=== PATIENT | male | born 1970 | race African-American/Black ===

== ENCOUNTER 2016-10-28 19:47 | Inpatient (IN) | payer OTHER ==
[~2016-10-28] VITALS: Ht 182.9 cm; Wt 98.1 kg
[~2016-10-28 19:47] MED LIST: ASPIR 8181 MG PO; MULTIPLE VITAM1 EAC2 PO
--- NOTE | 2016-10-28 20:08 | NUR ---
PT BIBA WITH COMPLAINTS OF DEPRESSION. PT STATES HE STARTED HEARING VOICES 3 DAYS AGO THAT HAVE BEEN TELLING HIM TO KILL HIMSELF. PT STATES THAT HE HAS HAD THESE VOICES ABOUT 1.5 YEARS AGO AND WAS PRESCRIBED PROZAC. PT STATES HE STOPPED TAKING THE PROAC BECAUSE IT MADE HIS MOUTH DRY. PT ALSO RELAYS THAT 1.5 YEARS AGO HE TRIED TAKING PILLS TO KILL HIMSELF. PT STATES TODAY HE HEARD THE VOICES AND DECIDED TO WALK INTO TRAFFIC BUT BECAME TOO SCARED AND DID NOT PROCEED. BYSTANDERS CALLED PD AND PT WAS BROUGHT IN. PT STATES HE DOES NOT HAVE ANY EXTRA STRESS IN HIS LIFE, BUT 1.5 YEARS AGO HE LOST HIS HOUSE, CARS AND MOTHER. PT ALSO STATES THAT HE HAS NOT BEEN ABLE TO SPEAK WITH HIS SON. PT STATES THAT HE THINKS HE IS STILL TRYING TO COPE WITH THESE STRESSORS.
--- NOTE | 2016-10-28 20:34 | NUR ---
DR CAMPOS AT BEDSIDE FOR EVAL.
--- NOTE | 2016-10-28 20:44 | ED PSYCHIATRIC COMPLAINT ---
History of Present Illness General Chief Complaint: Psychiatric Related Complaint Stated Complaint: "BIBA PER EMS +SI WITH A PLAN" Source: patient Exam Limitations: intoxication Vital Signs & Intake/Output Vital Signs & Intake/Output Vital Signs Date Time Temp Pulse Resp B/P B/P Pulse O2 O2 Flow FiO2 Mean Ox Delivery Rate 10/29 1518 97.1 73 16 132/69 99 Room Air 10/29 1221 97.3 82 18 135/71 99 Room Air 10/29 0957 97.8 97 20 122/67 97 10/29 0631 97.0 73 18 128/69 99 Room Air 10/29 0224 97.3 80 20 127/69 99 Room Air 10/29 0041 97.5 83 20 129/75 98 10/28 2232 97.8 84 18 119/65 98 Room Air 10/28 2010 96.8 103 20 132/72 98 Room Air ED Intake and Output 10/29 0000 10/28 1200 Intake Total 0 Output Total Balance 0 Intake, Oral 0 Patient 185 lb Weight Triage Note: PT BIBA WITH COMPLAINTS OF DEPRESSION. PT STATES HE STARTED HEARING VOICES 3 DAYS AGO THAT HAVE BEEN TELLING HIM TO KILL HIMSELF. PT STATES THAT HE HAS HAD THESE VOICES ABOUT 1.5 YEARS AGO AND WAS PRESCRIBED PROZAC. PT STATES HE STOPPED TAKING THE PROAC BECAUSE IT MADE HIS MOUTH DRY. PT ALSO RELAYS THAT 1.5 YEARS AGO HE TRIED TAKING PILLS TO KILL HIMSELF. PT STATES TODAY HE HEARD THE VOICES AND DECIDED TO WALK INTO TRAFFIC BUT BECAME TOO SCARED AND DID NOT PROCEED. BYSTANDERS CALLED PD AND PT WAS BROUGHT IN. PT STATES HE DOES NOT HAVE ANY EXTRA STRESS IN HIS LIFE, BUT 1.5 YEARS AGO HE LOST HIS HOUSE, CARS AND MOTHER. PT ALSO STATES THAT HE HAS NOT BEEN ABLE TO SPEAK WITH HIS SON. PT STATES THAT HE THINKS HE IS STILL TRYING TO COPE WITH THESE STRESSORS. Triage Nurses Notes Reviewed? yes HPI: Patient presents for evaluation of suicidal ideation. He states that over the past week he began hearing voices commanding him to hurt himself. He states that he contemplated running into traffic. About a year ago he had taken an overdose of pills in a suicide attempt but denies hearing voices at that time. Voices of become more severe and insulting. He hasn't been taking any medications for this (he was on a prior antidepressant but discontinued this secondary to side effects). (MILENA VARGAS,CALVIN Joyner) Allergies Coded Allergies: No Known Allergies (10/29/16) (JOHAN VARGAS,MICHAEL Pearson) Reconcile Medications Elvitegr/Cobicist/Emtric/Tenof (Stribild Tablet) 150 MG-150 MG-200 MG-300 MG TABLET 1 TAB PO DAILY HIV (Reported) Multivitamin (Multiple Vitamins) 1 EACH TABLET 1 TAB PO DAILY SUPPLEMENT ( Reported) (LEATHA VARGAS,TIMOTHY) Past History Travel History Traveled to [place] past 21 day No Medical History Any Pertinent Medical History? see below for history Neurological: CVA Psychiatric: depression Blood Disorders: HIV Surgical History Surgical History: non-contributory Psychosocial History What is your primary language Eritrean Tobacco Use: Current Daily Use Daily Tobacco Use Amount/Type: => 5 Cigarettes daily ETOH Use: occasional use Illicit Drug Use: denies illicit drug use Family History Hx Contributory? No (MILENA VARGAS,CALVIN Joyner) Review of Systems Review of Systems Constitutional: Reports: no symptoms. EENTM: Reports: no symptoms. Respiratory: Reports: no symptoms. Cardiovascular: Reports: no symptoms. GI: Reports: no symptoms. Genitourinary: Reports: no symptoms. Musculoskeletal: Reports: no symptoms. Skin: Reports: no symptoms. Neurological/Psychological: Reports: see HPI. Hematologic/Endocrine: Reports: no symptoms. Immunologic/Allergic: Reports: no symptoms. All Other Systems: Reviewed and Negative (MILENA VARGAS,CALVIN Joyner) Physical Exam Physical Exam General Appearance: see below Neurological/Psychiatric: see below Comments: General: Alert, calm, cooperative Head: Normocephalic, atraumatic Eyes: Normal inspection, no nystagmus, decreased extraocular movements in the right eye secondary to prior trauma (basketball injury) Ears: Normal inspection Nose: Normal inspection Throat: Moist mucosa Neck: Supple, no goiter Heart: Regular rate and rhythm, no murmurs rubs or gallops Lungs: Clear to auscultation bilaterally with good air entry Abdomen: Soft nontender nondistended, normal bowel sounds Chest: Nontender Extremities: Normal range of motion grossly, no tremors present, no cyanosis clubbing or edema of the upper extremities Neurologic: cranial nerves II through XII grossly intact, speech clear, gait normal Psychiatric: No apparent delusions or hallucinations, no pressured speech or thought blocking SAD PERSONS Done? deferred to crisis (MILENA VARGAS,CALVIN Joyner) Progress Differential Diagnosis: drug intoxication, depression, anxiety, schizophrenia Plan of Care: Orders Procedure Date/time Status Regular Diet 10/29 B Active Admit to inpatient psych 10/30 1999 Active Continuous Observation Monitor 10/28 2125 Active URINE DRUG SCREEN FOR ER ONLY 10/28 2042 Complete ETHANOL 10/28 2042 Complete CBC WITHOUT DIFFERENTIAL 10/28 2042 Complete BASIC METABOLIC PANEL 10/28 2042 Complete ED CRISIS PSYCH CONSULT 10/28 2042 Active Current Medications Sig/Mark Start time Last Medication Dose Stop Time Status Admin Non-Formulary 0 SEE ADMIN CRITERIA 10/29 1699 UNVr Medication (NON FORMULARY) Laboratory Tests 10/28/162049: Serum Alcohol 74.0 10/28/162049: Anion Gap 13, Estimated GFR 54 L, BUN/Creatinine Ratio 12.9, Glucose 77, Calcium 9.0, CBC w Diff NO MAN DIFF REQ, RBC 4.99, MCV 72.8 L, MCH 23.7 L, RDW 18.4 H, MPV 8.3, Gran % 51.1, Lymphocytes % 33.6, Monocytes % 11.0 H, Eosinophils % 3.6, Basophils % 0.7, Absolute Granulocytes 3.1, Absolute Lymphocytes 2.0, Absolute Monocytes 0.7 H, Absolute Eosinophils 0.2, Absolute Basophils 0, PUBS MCHC 32.5 L, Urine Opiates Screen < 100.00, Methadone Screen < 40, Barbiturate Screen < 60, Ur Phencyclidine Scrn < 6.00, Amphetamines Screen < 100, U Benzodiazepines Scrn < 85, Urine Cocaine Screen < 50, Urine Cannabis Screen < 5.00 2:10 PM Patient signed out to me by Dr. La. Pending crisis disposition. (LEATHA VARGAS,TIMOTHY) Comments: 10/29/2016 7:17:19 AM patient signed out to Dr. La. (MILENA VARGAS,CALVIN Joyner) Hand-Off Endorsed To: TIMOTHY ZHANG MD Endorsed Time: 1400 Pending: consult (BED SEARCH) (JOHAN VARGAS,MICHAEL Pearson) Departure Departure Disposition: STILL A PATIENT Condition: Stable Referrals: UNKNOWN (PCP/Family) Departure Forms: Customer Survey General Discharge Information (CALVIN ABBOTT MD) Departure Time of Disposition: 2000 Clinical Impression Primary Impression: Psychosis Psych Admission Note Psychiatric Admission: I have seen and evaluated MARGE BERRY. I have also reviewed all the pertinent lab results and diagnostic results. MARGE BERRY will be admitted to our inpatient Psychiatric unit for treatment and care. (LEATHA VARGAS,TIMOTHY)
--- NOTE | 2016-10-28 20:56 | NUR ---
URINE TRIO AND LABS SENT (BLUE,SST,LAV,CORONEL)
[2016-10-28 21:08] LABS: ABSOLUTE BASOPHIL COUNT 0 /CUMM (0.0-0.2); ABSOLUTE EOSINOPHIL COUNT 0.2 /CUMM (0.0-0.7); ABSOLUTE GRANULOCYTE CT 3.1 /CUMM (1.4-6.5); ABSOLUTE MONOCYTE COUNT 0.7 /CUMM (0.10-0.60); BASOPHIL % 0.7 % (0.0-2.0); EOSINOPHIL % 3.6 % (0-5); GRANULOCYTE % 51.1 % (42.2-75.2); HEMATOCRIT 36.4 % (42-52); MEAN CORPUSCULAR HGB 23.7 PG (27.0-31.0); MEAN CORPUSCULAR HGB CONC 32.5 G/DL (33.0-37.0); MEAN CORPUSCULAR VOLUME 72.8 FL (80.0-94.0); MEAN PLATELET VOLUME 8.3 FL (7.4-10.4); PLATELET COUNT 260 /CUMM (130-400); RBC DISTRIBUTION WIDTH 18.4 % (11.5-14.5); RED BLOOD CELL CT 4.99 /CUMM (4.70-6.10)
--- NOTE | 2016-10-28 22:40 | NUR ---
PT RESTING QUIELTY ON STRETCHER. NORMAL RR NOTED. SITTER IN PLACE. WILL CONTINUE TO MONITOR.
--- NOTE | 2016-10-28 22:55 | NUR ---
ASSUMED CARE OF PT, PT RESTING IN RM WITH RR, WILL CONTINUE TO MONITOR. SITTER IN PLACE
--- NOTE | 2016-10-29 00:30 | NUR ---
PT SLEEPIGN IN RM WITH BILATERAL CHEST RISE AND FALL NOTED. SITTER IN PLACE AT DOOR
--- NOTE | 2016-10-29 02:20 | NUR ---
PT SLEEPING WITH RR. SITTER IN PLACE IN DOOR WAY. WILL CONTINUE TO MONITOR
--- NOTE | 2016-10-29 05:32 | NUR ---
PT SLEEPING WITH RR AND SNORING, WILL CONTINUE TO MONITOR. SITTER IN PLACE
--- NOTE | 2016-10-29 07:37 | NUR ---
PT SLEEPING, NORMAL RESP RATE NOTED. SITTER AT BEDSIDE FOR PT SAFETY.
--- NOTE | 2016-10-29 10:43 | ED PSYCH CRISIS CONSULTATION ---
Crisis Consult Basic Assessment Date of Consult: 10/29/16 Responsible Person/Accompanied By: NEGRITO Insurance Authorization: Insurance #1: Insurance name: MEDICARE A Phone number: Policy number: [id number] Group number: Authorization number: ED Provider: Patient's ED Provider: CALVIN ABBOTT MD Primary Care Physician: Patient's PCP: UNKNOWN PCP's Phone Number: Current Psychiatrist: None Chief Complaint: Psychiatric Related Complaint Patient's Quote: "Im having suicidal thoughts, and feellike I failed at life" Present Illness: Pt is a 46 year old male, states yesterday he began to hear voices telling him to "put yourself in front of a moving vehicle', pt did it, and a bystander called 911 and he brought in by ambulance. Pt is calm, cooperative. He states he recently became homeless and is upsetting, that he has suffered so much loss int he past 2 years. "if I loved it I lost it", pt refers to his Mother, his and children and his apartment and job. Pt states he also found out 6 months ago he was HIV +. Pt reports he is overwhelmed, depressed, and has been drinking daily usually vodka and/or a few beers. He has no history of having psychiatric treatment, 4 years ago he detoxed at [facility]. Pt denies drug use and his tox screen is negative. Pt reports he tried to hurt himself 2 years ago by taking pills, he is currently suicidal, "I feel like I failed at life", he is hopeless and reports he is hearing command hallucinations telling him to hurt himself. Pt is only on medication for HIV + and is not on any psychiatric medications. Pt understands plan will be for admission. Patient's Address: [address] [place] [id number] Other Phone Number: Family/Informants Interviewed: Spoke with Brad alvarez brother, he states his brother lost his apartment and he has been having a lot of stress since becoming homeless. Please keep him informed once we know where he is going to be hospitialized Allergies - Coded Allergies: No Known Allergies (10/29/16) Current Medications - Scheduled Medications Aspirin (Ecotrin) 81 MG TABLET. 1 TAB PO DAILY BLOOD THINNER (Reported) Entered as Reported by FRANCISCA COHEN on 05/29/142035 Multivitamin (Multiple Vitamins) 1 EACH TABLET 1 TAB PO DAILY SUPPLEMENT ( Reported) Entered as Reported by FRANCISCA COHEN on 05/29/142036 Laboratory Results: Laboratory Tests 10/28/162049: Serum Alcohol 74.0 10/28/162049: Anion Gap 13, Estimated GFR 54 L, BUN/Creatinine Ratio 12.9, Glucose 77, Calcium 9.0, CBC w Diff NO MAN DIFF REQ, RBC 4.99, MCV 72.8 L, MCH 23.7 L, RDW 18.4 H, MPV 8.3, Gran % 51.1, Lymphocytes % 33.6, Monocytes % 11.0 H, Eosinophils % 3.6, Basophils % 0.7, Absolute Granulocytes 3.1, Absolute Lymphocytes 2.0, Absolute Monocytes 0.7 H, Absolute Eosinophils 0.2, Absolute Basophils 0, PUBS MCHC 32.5 L, Urine Opiates Screen < 100.00, Methadone Screen < 40, Barbiturate Screen < 60, Ur Phencyclidine Scrn < 6.00, Amphetamines Screen < 100, U Benzodiazepines Scrn < 85, Urine Cocaine Screen < 50, Urine Cannabis Screen < 5.00 Past History Past Medical History Neurological: CVA Psychiatric: depression Blood Disorders: HIV Past Surgical History Surgical History: non-contributory Psychosocial History Strengths/Capabilities: Wants treatment, has had a hx of stabilzation Psychiatric Treatment History Psych Treatment Psychiatric Treatment No Diagnosis by History: none known Substance Use/Abuse History Drug Use/Abuse Substances Used/Abused Yes Substance Used/Abused Alcohol First Use teenage Last Used yesterday How much used/taken varies sometimes vodka sometimes a few beers How often daily For how long on and off for years Route of use oral Substance Abuse Treatment Substance Abuse Treatment Past Substance Abuse TX Yes Inpatient Treatment Yes Outpatient Treatment No Location of Treatment [facility] Reason for Treatment etoh detox Dates of Treatment 4 years ago Response to Treatment unknown Current Mental Status Mental Status Orientation: Person, Place, Situation Affect: Variable Speech: WNL Neuro-vegetative: Concentration Poor, Energy Decreased, Helpless, Sleep Disturbance Appearance Appearance- Dress/Hygiene: Tattoos, groomed. Behaviors Thought Process: Tangential Thought Content: Auditory Hallucinations Memory: WNL Insight: Poor SI/HI Risk Assessment Past Suicidal Ideation/Attempts Yes Current Suicidal Ideation/Att Yes Past Homicidal Ideation/Att: No Current Homicidal Ideation/Attempts No Degree of Intent: Made Preparations Danger To: Self Gravely Disabled: Poor Impulse Control Risk Factors: chronic/serious med cond., history of suicide atmpts, substance abuse, poor impulse control, male, limited support Lethality Ratin PTSD Checklist PTSD Done? patient declined ED Management Sitter: Yes Restraints: No DSM5/PS Stressors/Medical Prob Diagnosis' (DSM 5, Stressors, Medical): Bipolar with psychosis F31.2 Current GAF: 25 Departure Disposition Psych Medical Clearance Date: 10/29/16 Medically Cleared at: 0930 Time Started: 09 Time Ended: 103 Psychiatrist Consulted: Dr. Rosen Date Disposition Established: 10/29/16 Time Disposition Established: 1035 Plan for Disposition - Modality: Bed Search Rationale for Disposition: Consulted with Dr. Rosen pt needs an inpatient hospital bed Referrals UNKNOWN (PCP/Family)
--- NOTE | 2016-10-29 14:09 | NUR ---
PT CONTINUES TO REST QUIETLY AND COMFORTABLY IN BED AWARE HE IS A BED SEARCH AT THIS TIME REMAINS WITHOUT COMPLAINTS SITTER PRESENT
--- NOTE | 2016-10-29 15:05 | NUR ---
ASSUMED CARE OF THIS PT AT THIS TIME. VSS. PT ASKING ABOUT HIS ONCE DAILY HIV MED CALLED "[facility]". WILL CHECK HOME MED LIST. SITTER AT DOOR FOR SAFETY.
[2016-10-29] MEDS ORDERED: STRIBILD TABLE1 EACH PO (15:26)
--- NOTE | 2016-10-29 19:15 | NUR ---
ASSUMED CARE OF PT PER RN KELLY. PT RESTING IN RM WITH RR, AWAITING A FOOD TRAY THIS RN WILL CHECK. WILL CONTINUE TO MONITOR. SITTER IN PLACE IN AT DOOR
--- NOTE | 2016-10-29 19:49 | IP CRISIS DIAG ASSESS PSYCH ---
Diagnostic Assessment Basic Assessment Insurance Authorization: Insurance #1: Insurance name: MEDICARE A Phone number: Policy number: [id number] Group number: Authorization number: There is an existing authorization for the same service that overlaps with the requested start date. You cannot proceed with this request. Need to call [facility] tomorrow during business hours to get authorization. TEMP ID - [id number] Primary Care Physician: Patient's PCP: UNKNOWN PCP's Phone Number: Patient's Quote: "Im having suicidal thoughts, and feellike I failed at life" Present Illness: Pt is a 46 year old male, states yesterday he began to hear voices telling him to "put yourself in front of a moving vehicle', pt did it, and a bystander called 911 and he brought in by ambulance. Pt is calm, cooperative. He states he recently became homeless and is upsetting, that he has suffered so much loss int he past 2 years. "if I loved it I lost it", pt refers to his Mother, his and children and his apartment and job. Pt states he also found out 6 months ago he was HIV +. Pt reports he is overwhelmed, depressed, and has been drinking daily usually vodka and/or a few beers. He has no history of having psychiatric treatment, 4 years ago he detoxed at [facility]. Pt denies drug use and his tox screen is negative. Pt reports he tried to hurt himself 2 years ago by taking pills, he is currently suicidal, "I feel like I failed at life", he is hopeless and reports he is hearing command hallucinations telling him to hurt himself. Pt is only on medication for HIV + and is not on any psychiatric medications. Pt understands plan will be for admission. Patient's Address: [address] [place] [id number] Other Phone Number: Who Do You Live With? Patient/Self Feel Safe Where You Live? Yes Feel Safe in Your Relationship Yes Marital Status: Do You Have Children? Yes Ages? 20,17 Primary Language? Yi Language(s) Spoken At Home: Yi Family/Informants Interviewed: Spoke with Brad alvarez brother, he states his brother lost his apartment and he has been having a lot of stress since becoming homeless. Please keep him informed once we know where he is going to be hospitialized Allergies - Coded Allergies: No Known Allergies (10/29/16) Current Medications - Scheduled Medications Elvitegr/Cobicist/Emtric/Tenof (Stribild Tablet) 150 MG-150 MG-200 MG-300 MG TABLET 1 TAB PO DAILY HIV (Reported) Entered as Reported by KEKE HARDING on 10/29/16 152 Multivitamin (Multiple Vitamins) 1 EACH TABLET 1 TAB PO DAILY SUPPLEMENT ( Reported) Entered as Reported by FRANCISCA COHEN on 05/29/142036 Consequences of Psych Med Use: not prescribed psychotropics Lab Results: Laboratory Tests 10/28/162049: Serum Alcohol 74.0 10/28/162049: Anion Gap 13, Estimated GFR 54 L, BUN/Creatinine Ratio 12.9, Glucose 77, Calcium 9.0, CBC w Diff NO MAN DIFF REQ, RBC 4.99, MCV 72.8 L, MCH 23.7 L, RDW 18.4 H, MPV 8.3, Gran % 51.1, Lymphocytes % 33.6, Monocytes % 11.0 H, Eosinophils % 3.6, Basophils % 0.7, Absolute Granulocytes 3.1, Absolute Lymphocytes 2.0, Absolute Monocytes 0.7 H, Absolute Eosinophils 0.2, Absolute Basophils 0, PUBS MCHC 32.5 L, Urine Opiates Screen < 100.00, Methadone Screen < 40, Barbiturate Screen < 60, Ur Phencyclidine Scrn < 6.00, Amphetamines Screen < 100, U Benzodiazepines Scrn < 85, Urine Cocaine Screen < 50, Urine Cannabis Screen < 5.00 Toxicology Screen Completed? Yes Results: positive (ETOH) Symptoms of Use: daily alcohol use. He reports past hx of cocaine abuse Past History Past Medical History Medical History: Stroke, BLIND LEFT EYE Past Surgical History Surgical History LEFT KNEE SURGERY Abuse/Trauma History Trauma History/Current Trauma: Denies Psychosocial History Strengths/Capabilities: Wants treatment, has had a hx of stabilzation Psychiatric Treatment History Psych Treatment Psychiatric Treatment Yes Inpatient Treatment Yes Outpatient Treatment No Location of Treatment [facility] - 10/23/16 stayed 1 day then discharged Reason for Treatment "chest pain" Diagnosis by History: none known Risk Factors: chronic/serious med cond., history of suicide atmpts, substance abuse, poor impulse control, male, limited support Substance Use/Abuse History Drug Use/Abuse minimum 12mo Hx Substances Used/Abused Yes Substance Used/Abused Alcohol First Use teenage Last Used yesterday How much used/taken varies sometimes vodka sometimes a fewbeers How often daily For how long on and off for years Route of use oral Substance Abuse Treatment Substance Abuse Treatment Past Substance Abuse TX Yes Inpatient Treatment Yes Outpatient Treatment No Location of Treatment [facility] Reason for Treatment etoh detox Dates of Treatment 4 years ago Response to Treatment unknown Comments: pt also reports a prior hx of cocaine abuse Education History Highest Level of Education: high school/GED Preferred Learning Style: visual, experiential Current Mental Status Mental Status Orientation: Person, Place, Situation Affect: Variable Speech: WNL Neuro-vegetative: Concentration Poor, Energy Decreased, Helpless, Sleep Disturbance Appearance Appearance- Dress/Hygiene: Tattoos, groomed. Behaviors Thought Process: Tangential Thought Content: Auditory Hallucinations Memory: WNL Insight: Poor SI/HI Risk Assessment - Minimum 6mo History- Past Suicidal Ideation/Attempts Yes Current Suicidal Ideation/Att Yes Past Homicidal Ideation/Att: No Current Homicidal Ideation/Attempts No Degree of Intent: Made Preparations Danger To: Self Gravely Disabled: Poor Impulse Control Risk Factors: chronic/serious med cond., history of suicide atmpts, substance abuse, poor impulse control, male, limited support Lethality Ratin Needs/Init TX Plan/Goals: psychiatric evaluation medication assessment individual, family and group tx coordinated discharge planning AUDIT-C Questionnaire: AUDIT-C Questionnaire: Response Value ETOH use in the past year 4 or more per week 4 # drinks typical/day 7-9 3 6 or > drinks per occasion Daily/Almost Daily 4 Total 11 DSM5/PS Stressors/Medical Prob Diagnosis' (DSM 5, Stressors, Medical): Bipolar with psychosis F31.2 Current GAF: 25 Comments: pt vague about admission to [place] on 10/23/16 and why he was discharged after 1 night.
--- NOTE | 2016-10-29 20:08 | NUR ---
THIS RN GAVE REPORT TO CPS RN. SECURITY CALLED FOR TRANSPORT. PTS BELONGINGS WILL GO DOWN WITH PT.
--- NOTE | 2016-10-29 21:42 | NUR ---
Patient admitted from ED. Patient is calm and cooperative. Patient is able to communicate in a clear and coherent manner. Patient reports commnad hallucinations that are currently "quiet". Patient reports he has abused cocaine within the past 6 months. Patient lists the primary trigger for use is ETOH. Patient reports drinks alcohol, but not constantly. Patient recent stressors include ex- preventing him from seeing 2 grown sons, 20 and 17, respectively. Patient is very friendly and looking forward to help. Patient verbalized understanding of unit rules and declined any further information about advanced directives. Looking forward to helping Fabricio with mental health.
[2016-10-29 21:46] VITALS: BP 140/73
--- NOTE | 2016-10-30 06:57 | NUR ---
PATIENT WAS UP TO BATHROOM ONCE, OTHERWISE SLEPT ALL NIGHT.
[2016-10-30 07:45] VITALS: BP 122/70
--- NOTE | 2016-10-30 11:41 | NUR ---
PT HAS BEEN CALM AND COOPERATIVE THIS SHIFT. HE IS ATTENDING GROUPS AND VERBALIZING HIS FEELINGS AND CONCERNS APPROPRIATELY. PT DENIES SUICIDAL THOUGHTS AT THIS TIME AND HE DENIES AH. HE STATED HE WAS PLEASED THAT HE CAME TO THE HOSPITAL FOR HELP.
--- NOTE | 2016-10-30 11:52 | NUR ---
CONSULT CALLED WITH DR KING REGARDING PTS ANTIVIRAL MEDICATION. DR KING HAS ASKED PHARMACY TO OBTAIN PTS SPECIFIC MED AND WILL NOT NEED TO SEE PT AT THIS TIME. HE STATED TO CALL IF WE FELT PT NEEDED TO BE SEEN
[2016-10-30 12:34] VITALS: BP 135/81
--- NOTE | 2016-10-30 13:30 | SOCIAL WORKER PROG NOTE PSYCH ---
Social Work Progress Note Progress Note Pt authorized from 10/29/16 to 11/04/16 U [id number] Pt was just inpatient at [facility] 10/23/16 to 10/27/16 per [facility], he was expected to follow up with [facility]. He was prescribed Remeron 15mg and Zyprexa 5mg
--- NOTE | 2016-10-30 13:31 | SOCIAL WORKER SOCIAL HX PSYCH ---
Social History Basic Assessment Insurance Authorization: Insurance #1: Insurance name: MEDICARE A Phone number: Policy number: [id number] Group number: Authorization number: Curr Source of Income/Entitlements: [employer] [facility] Primary Care Physician: Patient's PCP: UNKNOWN PCP's Phone Number: Primary Language? Kosovan Language(s) Spoken At Home: Kosovan Living Situation Other Living Arrangement: homeless living w/friend Feel Safe Where You Are Living No Feel Safe in Relationships? Yes Comments: pt does not feel safe being homeless Allergies - Coded Allergies: No Known Allergies (10/29/16) Current Medications - Scheduled Medications Elvitegr/Cobicist/Emtric/Tenof (Stribild Tablet) 150 MG-150 MG-200 MG-300 MG TABLET 1 TAB PO DAILY HIV (Reported) Entered as Reported by KEKE HARDING on 10/29/16 1526 Multivitamin (Multiple Vitamins) 1 EACH TABLET 1 TAB PO DAILY SUPPLEMENT ( Reported) Entered as Reported by FRANCISCA COHEN on 05/29/142036 Past History Past Medical History Neurological: CVA Psychiatric: depression Blood Disorders: HIV Past Surgical History Surgical History: non-contributory /Family History Place/Country of Origin: [place], [place] Childhood Family Constellation: Mother and Father never lived together, but he was there. Grew up with 6 brothers and 1 sister. Primary Childhood Caretakers: mother Family Life During Childhood: "Great" DCF Involvement? No Mother's Age (Current/): 66 ( 2 years ago) Relationship w/Mother: she was my best friend, she 2 years ago and I'm not over it yet Father's Age (Current/): 68 Relationship w/Father: it was ok, he also 2 years ago Any Sibling(s)? Yes Sibling's Gender(s)/Age(s): male Sibling 1:, male Sibling 2:, male Sibling 3:, male Sibling 4:, male Sibling 5:, male Sibling 6:, female Sibling 7: Relationship w/Sibling(s): we talk everyday, we are all very close. Im one of 8 Relationship w/Friends: I have a few 'righteous" friends Family Psych/Sub Abuse/Add Hx: drug of choice Other Comments: Some uncles had ad rinking problem, and maybe some family memebers had some psych issues but no one was diagnosed Abuse/Trauma History Trauma History/Current Trauma: Denies Legal History Current Legal Status: none Pending Court Dates: denies Have you ever been arrested Yes Number of Arrests: 1 Hx of Juvenile Legal Charges? No Hx of Adult Legal Charges? No Civil Proceedings: denies Domestic Relations Court: denies Child Protective Serv Involvmnt denies Community Relations Liaison denies Psychosocial History Primary Support System: significant other, sibling(s) Strengths/Capabilities: Wants treatment, has had a hx of stabilzation Weaknesses: homelessness, "not getting out of this funk" Last Physical: unknown History of Seizures? No (had a stroke) History of Blackouts? No ADL Limitations: had a stroke and body reacts differently now, and pt reports he cant run now [place]/Social/Peer Relations few friends Meaningful Activities: "Im a boring rafael", dinner and a movie and my family are all i need to make me content Childhood Episcopalian: Religion Current Muslim Affiliation: Religion Is Spirituality Important to You? yes Patient's Ethnicity: Cultural/Ethnic Issues: none Are There Developmental Issues? No Milestones Achieved: fine motor, gross motor Psychiatric Treatment History Psych Treatment Inpatient Treatment Yes Outpatient Treatment No Location of Treatment [facility] 10/23/16 stayed 1 daythen discharged Reason for Treatment "chest pain" Diagnosis: none known Psychodynamic Issues: grief, homelessness, not seeing his children in 2 years Risk Factors: chronic/serious med cond., history of suicide atmpts, substance abuse, poor impulse control, male, limited support Substance Use/Abuse History Drug Use/Abuse Substance Used/Abused Alcohol First Use teenage Last Used yesterday How much used/taken varies sometimes vodka sometimes a fewbeers How often daily For how long on and off for years Route of use oral Have Had Periods of Sobriety? No Relapse History? Yes Have You Ever Attended AA? No Do You Attend AA Currently? No Do You Have a Sponsor? No Symptoms of Use: daily alcohol use. He reports past hx of cocaine abuse Substance Abuse Treatment Substance Abuse Treatment Inpatient Treatment Yes Outpatient Treatment No Location of Treatment [facility] Reason for Treatment etoh detox Dates of Treatment 4 years ago Response to Treatment unknown Sexual History Sexually Active Yes # of partners 1 Sexual Orientation Heterosexual Use of Protection No Sexual Concerns: none noted Education History Highest Level of Education: high school/GED Highest Grade Completed: ged Number of College Years: 0 College Degree/Major: n/a Preferred Learning Style: visual, experiential HX of Learning Difficulties: dyslexia Barriers to Learning: None reported Special Communication Needs: None reported Employment History Employment Unemployed No. of Jobs in Last 5 Years: 2 History Have You Been in The ? No Current Mental Status Mental Status Orientation: Person, Place, Situation Affect: Variable Speech: WNL Neuro-vegetative: Concentration Poor, Energy Decreased, Helpless, Sleep Disturbance Appearance Appearance- Dress/Hygiene: Tattoos, groomed. Behaviors Thought Process: Tangential Thought Content: Auditory Hallucinations Memory: WNL Insight: Poor SI/HI Risk Assessment Past Suicidal Ideation/Attempts Yes Current Suicidal Ideation/Att Yes Past Homicidal Ideation/Att: No Current Homicidal Ideation/Attempts No Degree of Intent: Made Preparations Danger To: Self Gravely Disabled: Poor Impulse Control Lethality Ratin - Conclusion and Recommendations for treatment - and discharge planning
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
--- NOTE | 2016-10-30 13:50 | NUR ---
PT VISIBLE IN THE [employer] THROUGHOUT THE DAY. HIS GOAL WAS TO HAVE AN OPEN MIND, PAY ATTENTION TO SELF. PT HAS BEEN GOING TO GROUPS, AND INTERACTS WITH SOME OF HIS PEERS. IN THE [place]IE[place] PT HAS BEEN COMPLIANT WITH STAFF DIRECTION, AND DENIES THOUGHTS OF HURTING SELF WHEN ASKED.
--- NOTE | 2016-10-30 15:26 | SOCIAL WORKER PROG NOTE PSYCH ---
Social Work Progress Note Progress Note Pt was calm and cooperative forthcoming with information. Pt states he can't seem to get "out of his funk", he is upset about the past 2 years regarding loss his mother, , children, job and cars but pt does not seem to have insight to what he can do to improve his mood, or his current situation. Pt states he has supportive siblings and his girlfriend is supportive.
--- NOTE | 2016-10-30 15:48 | RADIOLOGY REPORT ---
EXAMINATION: XR HAND, RIGHT CLINICAL INFORMATION: Pain COMPARISON: None TECHNIQUE: AP, lateral, and oblique views of the right hand. FINDINGS: The bones and soft tissues are normal. No fracture. Alignment is anatomic. Joint spaces are maintained. No erosions or soft tissue calcifications. IMPRESSION: Normal right hand.
[2016-10-30 16:17] VITALS: BP 143/77
--- NOTE | 2016-10-30 16:38 | CPS MD/APRN INITIAL ASSE PSYCH ---
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 Chief Complaint: "I'm having suicidal thoughts and feel like I failed at life." ("two years ago I had a , kids, a job and a home [in [place]]...if I loved it, I lost it...") Reaction to Hospitalization: hoping for relief of unremitting depression History of Present Illness Onset of Illness: Things have gone further downhill than they were already since patient has lost his job and apartment and become essentially homeless. He went to [facility] for help on 10/23/2016 but was held for just one day and discharged (?from the E.R.) He was brought in by ambulance complaining of voices "for 3 days" and that they told him to "walk into traffic," bystanders became concerned, called 911 and he was brought to hospital. In the E.D., patient eventually became concerned that he needed his HIV medication, Stribild (evidencing some regard for his own health and welfare). Circumstances Leading to Admission: (see above, under Onset of Illness) beginning to walk into traffic at command of "voices" Problem(s) Justifying Need for Admission: (see above, under Onset of Illness) experiencing command auditory hallucinations to walk into traffic Other HPI: Patient said he had started to abuse crack cocaine while living with his family in [place]; this finally eventuated about 2 years ago into his losing job, home, and children; his mother with whom he had been close 2 years ago. Since then he has become increasingly depressed but had started to do somewhat better here in [place], had a job and acquired his own apartment but was laid off and lost his new place, becoming homeless again. Past Psychiatric History Past Diagnosis(es)- if any: no previous treatment known at this time other than recently being given Prozac which he stopped taking due to dry mouth Past Precipitating Factors- if any: (as above) - Include inpatient and outpatient treatment Treatment History: detoxed at [facility] 4 years ago; said to have been inpatient at [facility], [facility], 10/23-10/27/2016, treated with Zyprexa, 5mg and Remeron, 15mg, referred to [facility]. History of Suicide Attempts or Gestures none known prior to incident in traffic CREW MANAGER Substance Abuse History: patient said to have been detoxed at [facility] "4 years ago" (?for what), has used alcohol ("on and off for years") and cocaine primarily; into cocaine years ago and suffered a stroke related to this in 2001 (but said to not have stopped using cocaine until 2004; he was recently drinking "vodka and a few beers" apparently daily (TYRONE in E.D. CREW MANAGER was 74.0), but urine tox. screen completely negative upon current E.D. presentation and also previously here in 05/2014. 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: HIV Other Medical Hx: has known about being HIV(+) possibly for years; currently receives treatment in [facility] where he is prescribed Stribild Isolation History: Standard Surgical History Surgical History: LEFT KNEE SURGERY Psychiatric Family/Social Hx Family History Psychiatric Illness: no history of known treatment ("but some may have had 'problems'") Substance Use: some uncles with alcohol problems Suicides: none known Other Family History: says he has 6 brothers and `1 sister "all doing well" Social History Living Situation: (see above, under Identifying Information) homeless Significant Relationships (family/friends): --has a current girlfriend who is supportive and with whom he stays on occasion --has 6 brothers and 1 sister Education: high school Vocation/Occupation: unemployed (?on SSDI) Legal: "arrested once" Other Social History: has 7 siblings who he claimed are "all doing well"; has 17 and 20-year-old children in [place] [facility] Behaviors Screening Tobacco Screening Tobacco Use from ED Docu: Current Daily Use Daily Tobacco Use Amount/Type: => 5 Cigarettes daily - If tobacco counseling indicated - the following topics are required. - #1 Recognizing dangerous situations. - #2 Coping Skills. - #3 Basic information about quitting. Status of Tobacco Cessation Counseling: #1, #2 AND #3 Completed Cessation Med Status: Nicotine Gum Ordered Alcohol Screening - ETOH screen POS if BAL >=80 or Audit-C>= M4/F3 Audit-C Score from Diag Assess: 11 Blood Alcohol Level: TYRONE = 74.0 Alcohol Use Screening Results: Pos per Audit C &/or BAL - If ETOH counseling indicated - the following topics are required. - #1 Express concern about the patient's - drinking at unhealthy levels, include informing - of national norms for moderate drinking: - men <= 14 drinks/week, max 4 drinks/occasion - women <= 7 drinks/week, max 3 drinks/occasion - #2 Providing feedback, including linking alcohol to - negative physical effects (liver injury, hypertension) - negative emotional effects (relationship problems and - depression) - negative occupational consequences (reduced work - performance) - #3 Advising the patient to abstain from alcohol or - to drink below national norms for moderate drinking - (as listed above). Status of ETOH Use Counseling: #1, #2 AND #3 Completed. Metabolic Screening - Screen if on a Neuroleptic Medication - Metabolic screening should include: - Blood Pressure, BMI, Glucose or Hgb A1c, & a - Lipid profile from within the past 365 days. Metabolic Screening ([x]) Not Applicable, patient not on a neuroleptic. OR () Patient on a neuroleptic(s) . Enter below results for Glucose or Hemoglobin A1C, and lipid panel if obtained during the last 365 days. BMI: 25.100 Blood Pressure: 135/75 Laboratory Results (If applicable): Exam and Plan Mental Status Examination Ambulation Status: without assistance Appearance: very tired/exhausted (at least partially due to lack of/poor sleeep) Attitude towards examiner: positive if slightly cautious Psychomotor activity: normal Behavior: appropriate, pleasant, polite Quality of speech: soft and somewhat poorly articulated at times (?related to exhaustion/lack of sleep) Affect: constricted, tense Mood: depressed, close to despondent Suicidal Ideation: acknowledges hearing voices CREW MANAGER telling him to walk into traffic but denies current suicidality and able/willing to give a safety promise for on [place] Homicidal Ideation: denied Hallucinations: experienced command auditory hallucinations recently CREW MANAGER but denied any at time of interview Paranoid/Delusional Material: possibly slightly guarded but generally forthcoming; no evidence of delusional ideation Difficulties with thought organization: mildly (?due to lack of sleep) Insight: limited but capable of enhancing with treatment Judgment: fair to good (though had a struggle with instructions of "voices" CREW MANAGER; started to walk into traffic on command but then "got scared") Orientation: full Cognition: grossly intact Memory Function: some impairment with regard to time frame and sequencing and apparently some variation in his account of events (different information on various assesments (in E.D., on H&P, etc.) Estimate of intellectual functioning: average Assets/Strengths Patient Identified Assets/Strengths: --loves his children --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 Initially, we will treat with SSRI anti-depressant and low dose neuroleptic with close monitoring for auditory hallucinations or other psychotic symptomatology. Sleep disturbance/disruption must be addressed. Referral to IOP would be a good idea once patient has a place of residence. We should have a family meeting with girlfriend and/or closest siblings ANTONIO. - Include all active medical diagnosis that require tx DSM 5 Diagnosis(es): Unspecified Depression, possibly recurrent, severe, with psychotic features ( auditory hallucinations) R/O Major Depressive Episode/Disorder R/O Schizoaffective Disorder, Depressed Alcohol Use Disorder, atleast mild to moderate (hx of at least one inpatient detox) Cocaine Use Disorder, possibly in remission but extensive history of abuse and sequelae (CVA) - Initial Tx Plan for Active Psych & Medical Conditions Treatment Plan: --will initiate treatment with low dose primary (SSRI) anti-depressant (Zoloft since experienced dry mouth with Prozac) --will initiate treatment with low dose neuroleptic (either restart Zyprexa or give Abilify to augment anti-depressant efficacy) --will attempt to improve sleep with trazodone, melatonin, low dose Ativan --will monitor for alcohol withdrawal (not likely to be major given low TYRONE in E.D. but hx of inpatient detox at [facility] 4 years ago) --will organize a couple's and/or family meeting --will consider referral to sober residence --will refer to our on dual focus IOP if will be living in local area (most recently resided in [place]) --will encourage involvement in A.A./sponsorship - Factors that would help patient function - in a less restrictive setting. Factors: --rapid and significant improvement in sleep --prompt resolution of homelessness as an issue --significant involvement/support of girlfriend and/or relatives, especially any of 7 siblings
[2016-10-30 19:50] VITALS: BP 129/93
--- NOTE | 2016-10-30 21:13 | NUR ---
PT IS CALM, COOPERATIVE WITH STAFF AND PEERS, AND COMPLIANT WITH UNIT RULES. PT IS OFTEN IN [place], INYERACTING WELL WITH OTHERS. MOOD IS STABLE, AFFECT APPEAR EUTHYMIC TO FULL RNAGE, AND APPETITE IS NORMAL. PT DENIES SI AT THIS TIME.
--- NOTE | 2016-10-31 05:14 | NUR ---
SLEPT WELL, ALTHOUGH PT STATES HE SLEPT ONLY A HALF HOUR ALL NIGHT. WOKE UP WITH A VERY DRY MOUTH AND HE THINKS IT'S FROM TAKING TRAZODONE.
[2016-10-31 07:55] VITALS: BP 143/78
[2016-10-31 12:27] VITALS: BP 134/59
--- NOTE | 2016-10-31 13:56 | SOCIAL WORKER TX PLAN PSYCH ---
Treatment Plan - Please Document: - Evidence that there is ongoing collaboration between - the patient and the interdisciplinary team, - including the patient's active participation and - responsibility for engaging in the treatment regimen, - and that the treatment plan is individualized and - relevant to the patient's conditions. - Treatment plan should reflect documentation indicating - that all active therapeutic efforts are included. Strengths/Capabilities: Wants treatment, has had a hx of stabilzation Patient Identified Trmt Goals: "I want to stay sober and get help for myself." Discharge Plan: IOP Problem/Goals #1 Problem #1: suicidal ideation Goal (Short Term): Today I will attend 2 groups Today I will identify 2 stressors Today I will identify 2 positive supports Today I will work on recognizing 3 emotions I am feeling Goal (E Commerce Solution Architect): Today I will attend 2 groups Today I will identify 2 stressors Today I will identify 2 positive supports Today I will work on recognizing 3 emotions I am feeling Interventions: Learn ways to manage depressive symptoms accordingly and identify positive supports to manage life stressors and mood fluctuations. Modalities: Encourage groups, education on depression, provide CBT treatment, family meeting. Problem/Goals #2 Problem #2: alcohol dependence/abuse Goal (Short Term): 1) Refrain from alcohol use 2) Identify 3 triggers for use 3) Identify 3 sober supports 4) Identify 3 coping skills Goal (E Commerce Solution Architect): I will have family meeting on unit during my hospitalization I will attend all AA groups on unit I will Identify 3 coping skills for cravings to use I will set up aftercare for dual diagnosis program to address both mental health and substance abuse concerns Interventions: Learn ways to manage cravings to use substances accordingly and identify coping skills to prevent relapse from occurring due to anxious/depressed feelings. Modalities: Encourage groups, education on addiction, provide CBT treatment, family meeting. DSM5/PS Stressors/Medical Prob Diagnosis' (DSM 5, Stressors, Medical): Bipolar with psychosis F31.2 Current GAF: 25 Treatment Team - Responsibilities of members of the treatment team include: - Medication Management- MD or PARTS COUNTER REPRESENTATIVE - Medication Administration and Monitoring- Nurse - Group Therapy- Occupational Therapist - 1:1 Therapy,Disch Planning,family involvement-Radio Station Engineer
--- NOTE | 2016-10-31 14:02 | SOCIAL WORKER PROG NOTE PSYCH ---
Social Work Progress Note Progress Note SW met with patient for the first time today. Patient presented with normal mood and affect today, reporting feeling "ok" offering minimal to no complaints. Patient shared with this loan underwriter his hx of substance abuse including past hx of cocaine use and most recent abuse/dependence of alcohol. Patient reports a desire to obtain sobriety and wishes to follow up with substance abuse treatment. Patient resides part of the time with his fiance and part of the time with a friend and patients brother. Patient reports that he does not want anyone involved in his treatment and will not have a family meeting. Patient denies SI/ HI/AH/VH at present. Patient is interested in attending IOP at [facility] in [place] and is aware that they have walk in evaluations on Tuesdays. If he is discharged by or on Thursday, patient would like to attend their walk in evaluation next Thursday.
--- NOTE | 2016-10-31 14:41 | NUR ---
slept in a little. has been out in community since getting up. mood is stable, euthymic affect. denied thoughts of self harm when asked. interacts well with peers and staff
[2016-10-31 15:54] VITALS: BP 136/69
--- NOTE | 2016-10-31 18:50 | CP SOUTH PROGRESS NOTE PSYCH ---
Psych (Inpt) Progress Note Progress Note Include the following elements, when applicable: Involvement in the active treatment of the patient with behavioral observations of the patient and the patient's response to the treatment. Review of the ongoing treatment process in the context of the treatment plan. Indication of how multi-disciplinary staff members are carrying out the treatment plan. Plans for future interventions and recommendations for revision of the treatment plan. Liaison with other physicians/providers. Progress Note: PSYCHIATRIST NOTE, 10/31/2016: I discussed this patient's progress thus far, current mental status, treatment and discharge planning with staff team today in the daily morning ITTM and also met again with him in individual session. Unfortunately, patient had a very poor night's sleep ("slept only a half hour..."), experiencing significant dry mouth which he tended to attribute to the trazodone but may also have been contributed to by low dose Abilify; I plan to discontinue both the trazodone and Abilify and increase melatonin and make it a regular HS medication and reinstate a lower dose of Zyprexa, 2.5mg HS, at least temporarily and increase Lexapro to 10mg/day tomorrow morning. Patient also c/o nasal stuffiness which may have an allergic component; I will start singular, 10mg, Afran nasal spray and also [place] PRN for dry mouth. I hope patient will sleep better tonight; he looks exhausted and is becoming understandably more frustrated, still depressed, but trying to be patient for some relief to sleeplessness and dysphoric mood.
[2016-10-31 20:19] VITALS: BP 144/79
--- NOTE | 2016-10-31 22:07 | NUR ---
PT IS STABLE AND SOCIALIZES WITH PEERS. OBSERVABLY CLOSE WITH HIS ROOMATE AND HAS BEEN SEEN ANTAGONIZING/STARING AT DECEMBER. PT DENIES ANY THOUGHTS OF SI AT THIS TIME.
[2016-11-01 07:58] VITALS: BP 131/68
[2016-11-01 12:24] VITALS: BP 133/67
--- NOTE | 2016-11-01 13:11 | CP SOUTH PROGRESS NOTE PSYCH ---
Psych (Inpt) Progress Note Progress Note Include the following elements, when applicable: Involvement in the active treatment of the patient with behavioral observations of the patient and the patient's response to the treatment. Review of the ongoing treatment process in the context of the treatment plan. Indication of how multi-disciplinary staff members are carrying out the treatment plan. Plans for future interventions and recommendations for revision of the treatment plan. Liaison with other physicians/providers. Progress Note: Stated that everything bad is on his mind, that he came up here b/c of drug use from [place] several years ago. 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 He stated that he was tired of getting stuff and losing it. When asked about circumsntaces around admission, he said, he was hearing voices saying, go ahead mother carson, jump in front of the truck Stated that it was the first time he had heard voices in his life; that he had some alcohol in his system but didnt remember being highly intoxicated. Poor sleep b/c of anxious thoughts, but depression improved and wants to move forward and remain drug free, stating it will help him regain what he has lost in his life. MSE: middle aged man, welll related, with good eye contact, grooming and hygiene. Mood is neutral, affect is full and reactive. Mild psychomotor agitation at times. Speech is wnl. Thought process coherent. Content positive for anxiety, ruminative thoughts about his past but no active suicidal (or passive) thoughts. Denied hallucinations currently; stating that prior to admission was his 1st experience of hallucinations. Fair insight; fair judgment. A: 46 y/o man w/ hx depressive sx, tried to jump in front of car in response to command voices; alcohol use d/o, cocaine use d/o (cocaine use in remission); presents w/ impaired sleep, anxiety and depressed mood still. P: Target risk factors/active sx (residual depressive sx, insomnia) medication, milieu therapy, engagement w/ peers and staff, groups. Will increase standing melatonin dose to 10mg. He was on trazodone initially but it was d/c-ed he does not recall why but thinksit may be due to dry mouth. Will see how he does on higher dose, if still not sleeping consider re-trying trazodone or another medication. Also olanzapine will likely be sedating, can consider increasing dose as well.
[2016-11-01 16:09] VITALS: BP 142/88
[2016-11-01 19:46] VITALS: BP 132/71
--- NOTE | 2016-11-01 21:22 | NUR ---
PT IS CALM, COOPERATIVE WITH STAFF AND PEERS, AND COMPLIANT WITH UNIT RULES. PT IS OFTEN IN [place]IE[place], INTERACTING WELL WITH OTHERS. MOOD IS STABLE, AFFECT IS EUTHYMIC TO FULL RNAGE, COMMUNICATION IS ORGANIZED AND APPEARS NORMAL IN ALL RESPECTS, AND APPETITE IS NORMAL. PT DENIES SI AT THIS TIME.
--- NOTE | 2016-11-02 05:33 | NUR ---
PT APPEARS SOMEWHAT VIGILANT, IRRITABLE, BUT SOCIAL WITH PEERS ON EVENINGS. PT APPEARED TO SLEEP.
[2016-11-02 07:53] VITALS: BP 135/75
--- NOTE | 2016-11-02 12:24 | NUR ---
Felipe appeared to have a good shift. reports not sleeping well last night. He went to one groups and left early. Spent time resting in his room. Denies SH/HI/SI. Minimal conversation, but will speak when spoken too.
[2016-11-02 12:31] VITALS: BP 132/77
[2016-11-02 16:15] VITALS: BP 130/67
--- NOTE | 2016-11-02 17:10 | CP SOUTH PROGRESS NOTE PSYCH ---
Psych (Inpt) Progress Note Progress Note Include the following elements, when applicable: Involvement in the active treatment of the patient with behavioral observations of the patient and the patient's response to the treatment. Review of the ongoing treatment process in the context of the treatment plan. Indication of how multi-disciplinary staff members are carrying out the treatment plan. Plans for future interventions and recommendations for revision of the treatment plan. Liaison with other physicians/providers. Progress Note: Stated that he has not slept well; melatonin was not helpful - we discussed re- starting trazodone vs another medication and he appeared amenable to trying something else. He has been on remeron in the past, will try for several nights. Otherwise, well related, pleasant, has been on the phone and in the milieu w/o issue. MSE: middle aged man, calm and pleasant. Well groomed and with good hygiene. Mood is good, affect is full. No psychomotor agitation noted. No tremor. Speech is normal. Thought process linear. Thought content neg for any severe depressive thoughts. No evidence of hallucinations. Good judgment, Fair insight. A: 46 y/o man w/ hx depressive sx, tried to jump in front of car in response to command voices; alcohol use d/o, cocaine use d/o (cocaine use in remission); presents w/ impaired sleep as his primary concern, with residual anxiety and depressed mood as well. P: Target risk factors/active sx (residual depressive sx, insomnia) medication, milieu therapy, engagement w/ peers and staff, groups. No change with increased melatonin dose. Will start remeron 15mg orally at night time to target residual depressed mood and assist with sleep.
[2016-11-02 20:02] VITALS: BP 120/75
--- NOTE | 2016-11-03 07:09 | NUR ---
PT UP TO TOILET X 1. PT APPEARED TO SLEEP BETTER.
[2016-11-03 08:14] VITALS: BP 143/70
--- NOTE | 2016-11-03 11:21 | CP SOUTH PROGRESS NOTE PSYCH ---
Psych (Inpt) Progress Note Progress Note Include the following elements, when applicable: Involvement in the active treatment of the patient with behavioral observations of the patient and the patient's response to the treatment. Review of the ongoing treatment process in the context of the treatment plan. Indication of how multi-disciplinary staff members are carrying out the treatment plan. Plans for future interventions and recommendations for revision of the treatment plan. Liaison with other physicians/providers. Progress Note: I discussed this patient's progress to date, current mental status, treatment process in the context of the treatment plan, and discharge planning with staff/ team in the daily morning inpatient team meeting. I also met with the patient myself in individual session. A total of 15 minutes was spent with the patient with more than 50% spent in counseling and/or coordination of care. SUBJECTIVE: "I only got 4 hours sleep last night, that's better than I normally get." OBJECTIVE: Current Medications Sig/Mark Start time Last Medication Dose Route Stop Time Status Admin Acetaminophen 650 MG Q4P PRN 10/29 2029 AC PO Al Hydroxide/Mg 30 ML Q4-6 PRN PRN 10/29 2029 AC Hydroxide PO Artificial Tears 2 GTT Q6-PRN PRN 11/03 1130 AC OPH Cyanocobalamin 1,000 MCG 11/02 1200 AC 11/03 PO 0928 Folic Acid 1 MG 10/30 1515 AC 11/03 PO 0928 Glycerin 2 SPRAY Q2H PRN 11/01 1999 AC 10/31 PO 2213 Magnesium Hydroxide 30 ML AT BEDTIME PRN 10/29 2029 AC PO Melatonin 10 MG AT BEDTIME 11/01 2199 AC 11/02 PO 2199 Mirtazapine 7.5 MG AT BEDTIME 11/03 2199 AC PO Mirtazapine 15 MG AT BEDTIME 11/02 220 DC 11/02 PO 2200 Montelukast Sodium 10 MG 10/31 PO 1944 Multivitamins 1 TAB DAILY 10/30 1000 AC 11/03 PO 0928 Nicotine 2 MG Q2 HRS NEEDED PRN 10/29 2029 AC PO Olanzapine 2.5 MG 10/31 AC 11/02 PO 2200 Olanzapine 2.5 MG Q2P PRN 11/01 1999 AC PO Oxymetazoline HCl 2 SPRAY 0800,10/31 DESHAWN 0930 Patient Own 1 UNIT DAILY 10/31 1000 AC 11/03 Medication PO 927 Sertraline HCl 50 MG 1000 11/01 1000 AC 11/03 PO 0928 Thiamine HCl 100 MG 0800 10/30 1515 AC 11/03 PO 0928 Laboratory Tests 11/04 523 Chemistry BUN (9 - 20 mg/dL) 21 H Creatinine (0.7 - 1.2 mg/dL) 1.1 Estimated GFR (>60 ml/min) > 60 BUN/Creatinine Ratio (7 - 25 %) 19.1 Triglycerides (<150 mg/dL) 108 Cholesterol (< 200 MG/DL) 214 H LDL Cholesterol, Calc (65 - 129 mg/dL) 102 HDL Cholesterol (40 - 60 mg/dL) 91 H Cholesterol/HDL Ratio (0.00 - 4.88 %) 2 TSH (0.270 - 4.200 uIU/mL) 1.830 Free T4 (0.64 - 1.79 ng/dL) 0.65 Thyroxine (T4) (4.5 - 10.9 ug/dL) 3.1 L Vital Signs Date Time Temp Pulse Resp B/P B/P Pulse O2 O2 Flow FiO2 Mean Ox Delivery Rate 11/03 813 96.9 81 143/70 11/02 2001 96.5 70 120/75 11/02 1615 80 130/67 11/02 1231 90 132/77 ASSESSMENT: Patient found this morning at approximately 11 AM in his bed. Calm and cooperative, pleasant. Reports sleeping only 4 hours last night after taking mirtazapine 15 mg at bedtime. States that this is an improvement over his usual amount of sleep, however still feels tired. Sclera appears somewhat red bilaterally. Tolerating other medications well, without complaint. Depression:4/10; Anxiety:4/10 (with 10 the worst.) Denies suicidal ideation, homicidal ideation, auditory hallucinations, visual hallucinations. Patient states and also believes that he will not kill himself. States he is not currently having any suicidal thoughts, and is not having any auditory hallucinations. He does however report that he has intermittent paranoid thoughts that people are watching him. States he does not have these paranoid thoughts at this time. Speech is well articulated, goal-directed, average in rate, volume and tone. Alert and oriented 3. Reports that his appetite is good. The patient understands the risks/benefits/side effects of the medication and is agreeable to continue taking them. PLAN: Patient has requested to have daily visiting nurse for help with medication adherence after discharge. States "I can use all the help I can get. " Decrease mirtazapine dose to 7.5 mg as a sleep aid at bedtime. Atificial tears for eye discomfort. Continue with current management as patient is improving. Continue to provide support and encouragement.
--- NOTE | 2016-11-03 11:59 | NUR ---
PT IS COMPLAINT AND COOPEARTIVE WITH UNIT RULES. PT IS OUT IN COMMUNITY INTERACTING WELL [facility] STAFF AND PEERS. PT IS ATTENDING SOME GROUPS. PT MOOD IS STABLE [facility] A FULL RANGE AFFECT. PT DENIES SI THOUGHTS. PT GOAL THIS MORNING WAS TO BE MORE SOCIAL WITH PEERS.
[2016-11-03 12:20] VITALS: BP 121/72
--- NOTE | 2016-11-03 13:05 | SOCIAL WORKER PROG NOTE PSYCH ---
Social Work Progress Note Progress Note Met with pt today, he is questioning when he will be discharged, we confirmed that there is walk in intakes at [facility] in [place] on Tuesdays and he agrees to attend an intake at that time at [address] [place] [address] 3rd floor between hours of 8:30 and 1:30p. Pt reports he will take the bus home, back to where his girlfriend is staying, he plans to take his disability check and use it for security on an apartment, but reports he can stay with his brother and girlfriend in the mean time. Pt is concerned about lack of sleeping otherwise pt states he "feels good" denies si/hi/ah.vh.
[2016-11-03 15:46] VITALS: BP 124/83
[2016-11-03 20:07] VITALS: BP 135/77
--- NOTE | 2016-11-04 04:52 | NUR ---
Slept well, no complaints offered.
[2016-11-04 07:35] VITALS: BP 129/73
[2016-11-04 12:22] VITALS: BP 136/69
--- NOTE | 2016-11-04 13:02 | NUR ---
PT HAS BEEN COMPLIANT AND COOPERATIVE WITH UNIT RULES. PT IS OUT IN THE COMMUNITY ITNERACTING WELL WITH STAFF AND PEERS. PT IS ACTIVE IN GROUPS. PT REPORTED A LITTLE ANXIETY THIS MORNING OVER DISCHARGE PLANS. PT MOOD IS STABLE WITH A FULL RANGE AFFECT. PT DENIES SI THOGUHTS.
--- NOTE | 2016-11-04 13:05 | SOCIAL WORKER PROG NOTE PSYCH ---
Social Work Progress Note Progress Note Met with Cassius this morning, he seemed to be in good spirits. He denied SI/HI, no overt psychosis. Staff reported in team meeting this morning that he was observed talking to himself last night. He stated how he wants to stay sober and follow-up was scheduled for [facility] in [place]. He stated he plans to return to his apartment. He agreed to follow-up with AA meetings. Concern remains regarding his responding to internal stimuli, plan to discuss further with Dr. Little. Felipe did report his Brother and sister are both polce officer's and "look out for me." He stated neither one was interested in coming in for a family meeting.
[2016-11-04] MEDS ORDERED: NICORELIEF2 MG PO (14:03)
[2016-11-04] MEDS ORDERED: OLANZAPINE2.5 M1 PO (14:19)
[2016-11-04] MEDS ORDERED: SERTRALINE HCL50 MG PO (14:19)
[2016-11-04] MEDS ORDERED: REMERON15 M2 PO (14:19)
--- NOTE | 2016-11-04 14:35 | NUR ---
will be discharged today to [facility] [place] [place] with follow up at [facility] in [place]. Mood is stable, euthymic affect. denied thoughts of self harm when asked. Denied AH/VH. Given education on suicide prevention and Bipolar D/O.
--- NOTE | 2016-11-04 14:37 | CP SOUTH PROGRESS NOTE PSYCH ---
Psych (Inpt) Progress Note Progress Note Include the following elements, when applicable: Involvement in the active treatment of the patient with behavioral observations of the patient and the patient's response to the treatment. Review of the ongoing treatment process in the context of the treatment plan. Indication of how multi-disciplinary staff members are carrying out the treatment plan. Plans for future interventions and recommendations for revision of the treatment plan. Liaison with other physicians/providers. Progress Note: PSYCHIATRIST NOTE (DISCHARGE), 11/04/2016: I discussed this patient's progress to date, current mental status, treatment and discharge plans with staff team today in the daily morning ITTM and met with him again myself in individual session prior to discharging him directly to intake with the [place] dual focus [facility], scheduled for tomorrow, 11/05, at 9:30am; patient was quite insistent upon leaving today and readily agreed to the intake appointment ("I WILL be there, Doc!") He understands that the prescriptions I would be calling in to his pharmacy would only be for a 2 week supply and that any further prescription by our department would be through prescribers at the [facility]. Patient said he has "a lot of respect for you all here; you are very professional; I would rather be treated here than anywhere else." Patient appeared somewhat anxious but denied sad or dysphoric mood and showed no evidence of suicidal or homicidal ideation, plans, intent or impulses and was well aware of his safety plan should he ever in the future come to believe himself at acute risk of harming himself or others. Though one staff report overnight noted patient "talking to himself" in bed, no PRN was administered and patient completely denied hearing any "voices" since admission to [facility]. We gave repeatedly encouraged patient to attend local A.A./N.A. meetings in [place] and acquire a sponor at his earliest opportunity. I also advised him to go to the next [place] [facility] meeting scheduled for 11/12/2016 at 4pm, facilitated by Sarahi Cook LCSW. Patient denied experiencing any side effects on current medication regimen and said he planned to continue taking them after discharge. I called into [facility] (on [address] in [place], opposite [facility]): Zoloft, 50mg: i daily in AM (50mg/day); #14 with no refill (anti-depressant) Zyprexa, 2.5mg: i nightly at HS (2.5-5mg/night); #28 with no refill i PRN racing thoughts/insomnia (clarify thoughts/ control auditory hallucinations) Remeron, 7.5mg: i nightly at HS (7.5mg/night); #14 with no refill (DFA/ anxiety at bedtime) (I encouraged patient to ultilize nicotine gum OTC to help reduce cravings for cigarettes/tobacco and cautioned him that he should not smoke while using the nicotine gum; I also gave him an appointment card for the next [place] [facility] scheduled on 11/12/2016 at 4pm.)
--- NOTE | 2016-11-04 14:41 | DISCHARGE SUMMARY REPORT-PSYCH ---
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) Psy Discharge Secondary Diag: R/O Schizoaffective Disorder, Depressed, with psychotic features HIV+ (on stribild) low normal range B12 levl Hospital Course Significant Lab Findings: BUN = 21; HDL = 91; hgb = 11.8, hct = 36.4, MCV = 72.8; monos = 11% with 0.7% mono abs; serum iron = 101, TIBC = 344, reticulocytes = 1.39%; B12 = 272, folic acid = 3.6; T4 = 3.2, 3/1, free T4 = 0.83, 3.1; TYRONE = 74.0; urine for drugs of abuse--negative (for complete details of all normal range laboratory data from this admission, see the electronic medical record) Course Complications: none Consultations: patient was seens for an admission medical H&P and followed medically during this admission by Myrna Collins M.D. Allergies: Coded Allergies: No Known Allergies (10/29/16) Hospital Course/TX Response: (see also, all admission/initial assessments, daily M.D./ON AIR DIRECTOR and TEST CONDUCTOR progress notes, all of which are in the electronic medical record) Initially, patient appeared to be suffering from recurrent depression, either unipolar or possibly schizoaffective (with recent onset of command auditory hallucinations instructing him to walk out into the road/into traffic) in the context of ongoing at least mild alcohol abuse; cocaine had been a significant issue in the past but apparently not at this time. Recent job loss and consequent homelessness contributed to severity of episode/symptomatology. We started by treating with an SSRI anti-depressant and low dose neuroleptic with close monitoring for psychotic features, particularly command voices and addressed increasingly severe sleep disturbance. We began Zoloft given anxiety and the fact that patient had experienced dry mouth on previous exposure to Prozac, and restarted Zyprexa. Sleep difficulty was treated with trazodone and melatonin, in addition to the aforementtioned. We monitored for alcohol abstinence syndrome which was not significant. We hoped for family support from patients 7 siblings and others and from his girlfriend but a family/couple's meeting was not organized; patient noted that he had both a brother and a sister who are police officers who "take care of me," but neither could be engaged for a meeting during this admission. There was some question of patient possibly responding to voices during the night, but he denied this, insisting that auditory hallucinations had resolved. Though, at length, patient agreed to aftercare in [facility], he also insisted upon discharge at least a day prior to that which had been planned, and there was a certain "pressure" to his insistence upon an early discharge. At time of discharge, patient appeared mildly anxious but not dysphoric or irritable and denied depressed mood; there was no evidence of suicidal or homicidal ideation, plans, intent or impulses and patient was well aware of his safety plan should he ever in future become afraid he might be at acute risk of harming himself or others. Discharge HBIPS - Tobacco Use Treatment Offered Post DC Medications Offered: Script Given-See Med List Post DC Tobacco Treatment Plan: [facility] Program Appt Date: 11/12/16 Program Appt Time: 1600 (Smoking Cessation Group at 4pm) - EtOH/Drug Use D/O Treatment Offered Post DC Medications Offered: Ref Med EtOH/Drug Use D/O Post DC EtOH/SubAbuse TX Plan: [facility] SubAbuse/Dual IOP Program Appt Date: 11/05/16 Program Appt Time: 0930 (IOP intake 11/05/16 at 9:30am) Metabolic Screening - Screen if on a Neuroleptic Medication - Metabolic screening should include: - Blood Pressure, BMI, Glucose or Hgb A1c, & a - Lipid profile from within the past 365 days. Metabolic Screening () Not Applicable, patient not on a neuroleptic. OR ([x]) Patient on a neuroleptic(s) . Enter below results for Glucose or Hemoglobin A1C, and lipid panel if obtained during the last 365 days. BMI: 25.100 Blood Pressure: 136/69 Laboratory Results (If applicable): [x] glucose = 77 (10/28/2016) cholesterol = 214 (all drawn 11/03/2016) triglycerides = 108 HDL = 91 LDL = 102 Discharge Instructions General Discharge Information Discharge Medications: Discharge Medications (dose, route, frequency, indications): (see alsoEva discharge progress note of 11/04/2016) I called into [facility] (on [facility], opposite [facility]) on date of discharge, 11/04/2016: Zoloft, 50mg: i tab daily in AM (50mg/day); #14 with no refill (anti- depressant) Zyprexa, 2.5mg: i tab nightly at HS; #28 with no refill (reduce racing thoughts/control auditory hallucinations) i tab PRN racing thoughts/insomnia (patient currently prescribed 2.5-5mg of Zyprexa daily) Remeron, 7.5mg: i tab nightly at HS (7.5mg/night); #14 with no refill ( insomnia/anxiety at bedtime/during night) patient was encouraged to utilize nicotine gum, 2gm OTC to help reduce cravings for cigarettes/tobacco and cautioned him against smoking while using the gum; he also received an appointment card for the next [facility] meeting scheduled for 11/12/2016 at 4pm, facilitated by Sarahi Cook LCSW) Multiple Neuroleptics: (X]) Not Applicable OR Document below three failed attempts at monotherapy, or a plan to taper to monotherapy, or augmentation of Clozapine. () Patient's Diet: heart healthy Patient's Activity: without restrictions DC Disposition: to stay with girlfriend in [place] or one of his several brothers until he puts down a deposit on a new apartment Recommendations: I would recommend closely monitoring patient for further improvement in depressive episode versus re-emergence of command "voices" and adjust discharge medications accordingly. Referred To: Patient was referred directly to intake with Polo VAZQUEZ scheduled for the day after discharge, 11/05/2016, at 9:30am. He was also repeatedly encouraged to become active in attending local A.A. meeting and communicate frequently with a sponsor. He was given an appointment card for the next scheduled [facility] on 11/12/2016 at 4pm which is facilitated by Sarahi Cook LCSW. Copies To: HUMBERTO VARGAS,NEVA; ZOFIA ESCOBAR,MEREDITH
--- NOTE | 2016-11-04 14:50 | SOCIAL WORKER PROG NOTE PSYCH ---
Social Work Progress Note Progress Note Made an intake appointment for 11/05/16 at [facility] at 930. Pt agrees to continue treatment and is aware that in order to stay on medication he needs outpatient providers. Pt encouraged to seek out sober supports. Pt denies si/hi/ah/vh. Pt anxious for discharge today.
== END 2016-11-04 15:15 | DRG 885 ==
LOC: ERH 19:47 → ERHI 10-29 20:08 → CP SOUTH 10-29 20:08 → ENRESERV 10-29 20:30 → CP SOUTH 10-30 12:16
PROVIDERS: Emergency Medicine; ADMIT Psychiatry & Neurology Addiction Medicine
DX: F32.3 Major depressive disorder, single episode, severe with psychotic features (principal); Z21 Asymptomatic human immunodeficiency virus [HIV] infection status
CPT/HCPCS: 36415; 73120-RT; 80307; G0463; G0480; J3490